=== PATIENT | female | born 1960 | race Caucasian/White ===

== ENCOUNTER 2019-02-07 09:00 | Observation (INO) ==
[2019-02-07] MEDS ORDERED: Ondansetron 4 MG/2 ML VIAL IVP ONE (09:08)
[2019-02-07] MEDS ORDERED: 0.9 % Sodium Chloride 1,000 ML IVC ONE ×2 (09:12→10:13)
[2019-02-07 09:46] LABS: VBG HCO3 28 mEq/L (21-27); VBG PCO2 49 mmHg (41-51); VBG PH 7.37 pH Units (7.32-7.42); VBG PO2 57 mmHg (25-50)
[2019-02-07 09:48] LABS: Basophils # 0.1 K/mcL (0.0-0.2); Basophils % 0.5 %; Hematocrit 43.5 % (35.3-44.9); Hemoglobin 13.9 g/dL (11.5-15.4); Immature Granulocytes % 0.7 % (0-4); Lymphocytes # 1.7 K/mcL (0.6-4.6); Mean Corpuscular Hemoglobin 27.8 pg (28.0-33.3); Monocytes % 5.9 %; Neutrophils # 14.5 K/mcL (1.6-8.9); Platelet Count 286 K/mcL (140-400); Red Cell Distribution Width 13.7 % (11.5-14.5); Segmented Neutrophils % 82.9 %; White Blood Count 17.4 K/mcL (4.3-11.1)
[2019-02-07] MEDS ORDERED: Isovue-370 500 ML BOTTLE IVP ONE (09:48)
--- NOTE | 2019-02-07 09:52 | Emergency Department Note ---
Disposition Clinical Impression: Pyelonephritis Disposition: Admitted As Inpatient Condition: Good Referrals: Santa Mcclain CNP [Primary Care Provider] - Forms: ED Satisfaction Letter, Work/School Release Time of Disposition: 11:46 Abdominal Pain HPI - General Chief Complaint: ED Abdominal Pain Stated Complaint: ABD Pain,Weakness Time Seen by Provider: 02/07/19 09:07 Source: patient Mode of arrival: ambulatory Limitations: no limitations Nursing Notes Reviewed: Yes Vital Signs Reviewed: Yes - History of Present Illness HPI Narrative: 58 year old female presents to the ED with complaints of abdominal pain and nausea with vomitting and sttes that this has been going on since Wednesday since she was exposed to her grandson who had strep thraot and she then consequently dveloepd blisters in her mouth. Lulú states that she has been without her insulin for the past 6 months secondary to insurance issues and has not been ab le to followup with the doctor because of it.S he has been recording his blood glucose at home and they have been in the range of 200-250s. Lulú states that the blisters in her mouth have improved but the abdominal pain has been worsening. States that is is gnerally diffuse but someimtes locates inot the LLQ side and denies any blood in her stool or diarrhea or consptiation. States that she has had decreased uriantion because of her nausea and depressed appetities. Denies ever being in DKA or hospitliaszed recently secondary to her diabetes. She takes insulin and no other diabetic medications. Lulú states that she has otherwise felt feverish at home without recoreded temperatures and chills. Pain Scale: 10 - Related Data Home Medications Medication Instructions Recorded Confirmed Gabapentin 04/05/17 Toujeo Solostar 04/05/17 Trulicity 04/05/17 Previous Rx's Medication Instructions Recorded Cefdinir [Omnicef] 600 mg PO DAILY #20 capsule 04/05/17 Fluticasone Propionate Nasal 2 spray IN DAILY #1 spray.susp 04/05/17 [Flonase] predniSONE [PredniSONE] 40 mg PO DAILY #10 tablet 04/05/17 Allergies Allergy/AdvReac Type Severity Reaction Status Date / Time No Known Allergies Allergy Verified 02/07/19 09:05 Constitutional: Reports: fever, chills, weakness. Denies: weight change Eyes: Denies: eye pain, eye discharge, vision change ENT ED: Denies: ear pain, throat pain, dental pain, hearing loss, epistaxis, congestion, dysphagia Cardiovascular: Denies: chest pain, palpitations, dyspnea on exertion, edema, syncope Respiratory: Denies: cough, dyspnea, wheezes, hemoptysis, stridor Gastrointestinal: Reports: abdominal pain, nausea. Denies: vomiting, diarrhea, constipation, hematemesis, melena, hematochezia Genitourinary: Denies: dysuria, frequency, hematuria, discharge Musculoskeletal: Denies: back pain, neck pain, arthralgia, myalgia Integumentary: Denies: rash, abrasion, lesions Neurological: Denies: headache, weakness, numbness, paresthesias, confusion, abnormal gait, vertigo Psychiatric: Denies: anxiety, depression, suicidal thoughts, homicidal thoughts, auditory hallucinations, visual hallucinations Endocrine: Denies: fatigue Hematological/Lymphatic: Denies: easy bleeding, easy bruising Allergic/Immunologic: Denies: facial swelling, urticaria Abdominal Pain PMH - Past Medical History Medical history: Reports: diabetes, hyperlipidemia, hypertension Female Surgical History: Reports: herniorrhaphy Psychiatric history: Reports: no psych history - Social History Smoking status: Never smoker Alcohol use: Reports: none Drug use: Reports: none Physical Exam - General Limitations: no limitations General appearance: alert - Head Head exam: atraumatic, normocephalic, normal inspection - Eye Eye exam: Present: normal appearance, PERRL, EOMI - Expanded Eye Exam Pupils: Bilateral: reactive - ENT ENT exam: normal exam, normal oropharynx, mucous membranes moist - Expanded ENT Exam External ear exam: Present: normal external inspection Mouth exam: Present: normal external inspection Teeth exam: Present: normal inspection Throat exam: Present: normal inspection - Neck Neck exam: Present: normal inspection, full ROM, trachea midline - Chest Chest inspection: Present: normal inspection, symmetric chest wall rise - Respiratory Respiratory exam: Present: normal lung sounds bilaterally - Cardiovascular Cardiovascular exam: Present: normal rhythm, tachycardia, normal heart sounds - Abdominal Exam Abdominal exam: Present: soft, tenderness, normal bowel sounds. Absent: Non- Tender, distention, guarding, rebound, rigidity, obturator sign, Braden's sign, Rovsing's sign, tenderness at McBurney's Point, hernia Abdominal tenderness: Present: diffuse, mild - Extremities Exam Extremities exam: Present: normal inspection, full ROM. Absent: tenderness, pedal edema - Expanded Upper Extremity Exam Shoulder exam: Present: normal inspection, full ROM Arm exam: Present: normal inspection, full ROM Elbow exam: Present: normal inspection, full ROM Forearm/Wrist exam: Present: normal inspection, full ROM Hand exam: Present: normal inspection, full ROM Vascular exam: Normal: capillary refill, radial pulse - Expanded Lower Extremity Exam Hip/Pelvis exam: Present: normal inspection, full ROM Upper leg exam: Present: normal inspection, full ROM Knee exam: Present: normal inspection, full ROM Lower leg exam: Present: normal inspection, full ROM Ankle exam: Present: normal inspection, full ROM Foot/toe exam: Present: normal inspection, full ROM Neurovascular/Tendon exam: Absent: motor deficit, sensory deficit, tendon deficit - Back Exam Back exam: Present: normal inspection, full ROM. Absent: tenderness - Neurological Exam Neurological exam: Present: alert, oriented X3 - Expanded Neurological Exam Patient oriented to: Present: person, place, time Coma Scale Eye Opening: Spontaneous Coma Scale Motor Response: Obeys Commands Coma Scale Verbal Response: Oriented Coma Scale Total: 15 - Psychiatric Psychiatric exam: Present: normal affect, normal mood - Skin Skin exam: Present: warm, dry, intact, normal color Course Course Narrative: I will do a ABCT and DKA workup on patient and start patient on IVF and insulin therapy as needed and I will do a focused infectious workup to rule out sepsis. - Consultations Consultation #1: discussed case with Dr. Carson who has accepted patient to her service. I was not able to give a whole presentation as Dr. Carson needed to attend to an emergent matter. She states that Dr. Berry will be calling back Time: 11:45 Vital Signs Temperature 98.1 F 02/07/19 09:03 Pulse Rate 111 02/07/19 09:03 Respiratory Rate 18 02/07/19 09:03 Blood Pressure 156/82 02/07/19 09:03 O2 Sat by Pulse Oximetry 94 02/07/19 09:03 Temperature 98.1 F 02/07/19 09:03 Pulse Rate 104 02/07/19 10:25 Respiratory Rate 18 02/07/19 10:25 Blood Pressure 163/86 02/07/19 10:25 O2 Sat by Pulse Oximetry 92 02/07/19 10:25 Oxygen Delivery Oxygen Delivery Nasal Cannula Abdominal Pain - Medical Records Medical records reviewed: Yes I reviewed the patient's medical records. - Lab Data Lab results reviewed: Yes I reviewed the patient's lab results. Result diagrams: 02/07/19 09:28 02/07/19 09:28 Lab Results 02/07/19 02/07/19 02/07/19 Range/Units 09:28 09:28 09:28 WBC 17.4 H (4.3-11.1) K/mcL RBC 5.00 H (3.82-4.97) M/mcL Hgb 13.9 (11.5-15.4) g/dL Hct 43.5 (35.3-44.9) % MCV 87.0 (83.0-100.0) fL MCH 27.8 L (28.0-33.3) pg MCHC 32.0 (31.6-35.5) g/dL RDW 13.7 (11.5-14.5) % Plt Count 286 (140-400) K/mcL MPV 10.0 (9.4-12.4) fL Immature Gran % 0.7 (0-4) % Seg Neutrophils % 82.9 % Lymphocytes % 10.0 % Monocytes % 5.9 % Eosinophils % 0.0 % Basophils % 0.5 % Neutrophils # 14.5 H (1.6-8.9) K/mcL Lymphocytes # 1.7 (0.6-4.6) K/mcL Monocytes # 1.0 (0.0-1.3) K/mcL Eosinophils # 0.0 (0.0-0.6) K/mcL Basophils # 0.1 (0.0-0.2) K/mcL PT 11.8 (9.4-12.1) Seconds INR 1.0 APTT 29.5 (26.0-36.0) Seconds VBG pH (7.32-7.42) pH Units VBG pCO2 (41-51) mmHg VBG pO2 (25-50) mmHg VBG HCO3 (21-27) mEq/L Sodium 135 L (136-145) mEq/L Potassium 4.2 (3.5-5.1) mEq/L Chloride 95 L (98-107) mEq/L Carbon Dioxide 26 (23-29) mEq/L BUN 26 H (8-23) mg/dL Creatinine 0.95 (0.60-1.20) mg/dL Est GFR ( Amer) > 60 (> 60) Est GFR (Non-Af Amer) > 60 (> 60) BUN/Creatinine Ratio 27 H (6-26) Glucose 528 H* (70-105) mg/dL Calculated Osmolality 309 H (280-300) Calcium 9.2 (8.6-10.3) mg/dL Total Bilirubin 0.5 (0.3-1.0) mg/dL Direct Bilirubin 0.1 (0.0-0.2) mg/dL Indirect Bilirubin 0.4 (0.0-1.2) mg/dL AST 9 L (13-39) Units/L ALT 6 L (7-52) Units/L Alkaline Phosphatase 66 (34-104) Units/L Troponin I < 0.03 (< 0.04) ng/mL Serum Total Protein 7.4 (6.4-8.9) g/dL Albumin 4.0 (3.5-5.7) g/dL Globulin 3.4 (2.4-3.5) g/dL Albumin/Globulin Ratio 1.2 (1.1-2.2) Lipase 13 (11-82) Units/L Beta-Hydroxybutyric Acd (0.02-0.27) mmol/L Specimen Rejected 02/07/19 02/07/19 02/07/19 Range/Units 09:28 09:43 11:19 WBC (4.3-11.1) K/mcL RBC (3.82-4.97) M/mcL Hgb (11.5-15.4) g/dL Hct (35.3-44.9) % MCV (83.0-100.0) fL MCH (28.0-33.3) pg MCHC (31.6-35.5) g/dL RDW (11.5-14.5) % Plt Count (140-400) K/mcL MPV (9.4-12.4) fL Immature Gran % (0-4) % Seg Neutrophils % % Lymphocytes % % Monocytes % % Eosinophils % % Basophils % % Neutrophils # (1.6-8.9) K/mcL Lymphocytes # (0.6-4.6) K/mcL Monocytes # (0.0-1.3) K/mcL Eosinophils # (0.0-0.6) K/mcL Basophils # (0.0-0.2) K/mcL PT (9.4-12.1) Seconds INR APTT (26.0-36.0) Seconds VBG pH 7.37 (7.32-7.42) pH Units VBG pCO2 49 (41-51) mmHg VBG pO2 57 H (25-50) mmHg VBG HCO3 28 H (21-27) mEq/L Sodium (136-145) mEq/L Potassium (3.5-5.1) mEq/L Chloride (98-107) mEq/L Carbon Dioxide (23-29) mEq/L BUN (8-23) mg/dL Creatinine (0.60-1.20) mg/dL Est GFR ( Amer) (> 60) Est GFR (Non-Af Amer) (> 60) BUN/Creatinine Ratio (6-26) Glucose (70-105) mg/dL Calculated Osmolality (280-300) Calcium (8.6-10.3) mg/dL Total Bilirubin (0.3-1.0) mg/dL Direct Bilirubin (0.0-0.2) mg/dL Indirect Bilirubin (0.0-1.2) mg/dL AST (13-39) Units/L ALT (7-52) Units/L Alkaline Phosphatase (34-104) Units/L Troponin I (< 0.04) ng/mL Serum Total Protein (6.4-8.9) g/dL Albumin (3.5-5.7) g/dL Globulin (2.4-3.5) g/dL Albumin/Globulin Ratio (1.1-2.2) Lipase (11-82) Units/L Beta-Hydroxybutyric Acd 1.42 H (0.02-0.27) mmol/L Specimen Rejected Hemolyzed - Radiology Data Radiology results reviewed: Yes I reviewed the patient's radiology results. - EKG Data EKG attestation: Yes I reviewed and interpreted this EKG. EKG results narrative: sinus tachycardia with rate of 107. NO STEMI. normal intervla. no change from 04/21/15. 0920
[2019-02-07 10:13] LABS: Alanine Aminotransferase 6 Units/L (7-52); Albumin/Globulin Ratio 1.2 (1.1-2.2); Alkaline Phosphatase 66 Units/L (34-104); Aspartate Amino Transferase 9 Units/L (13-39); BUN/Creatinine Ratio 27 (6-26); Bilirubin,Direct 0.1 mg/dL (0.0-0.2); Bilirubin,Indirect 0.4 mg/dL (0.0-1.2); Bilirubin,Total 0.5 mg/dL (0.3-1.0); Blood Urea Nitrogen 26 mg/dL (8-23); Calcium 9.2 mg/dL (8.6-10.3); Carbon Dioxide 26 mEq/L (23-29); Chloride 95 mEq/L (98-107); Globulin 3.4 g/dL (2.4-3.5); Glucose 528 mg/dL (70-105); Lipase 13 Units/L (11-82); Osmolality,Calculated 309 (280-300); Potassium 4.2 mEq/L (3.5-5.1); Sodium 135 mEq/L (136-145); Total Protein 7.4 g/dL (6.4-8.9); Troponin I < 0.03 ng/mL (< 0.04); eGFR For African Americans > 60 (> 60); eGFR For Non-African Americans > 60 (> 60)
[2019-02-07] MEDS ORDERED: Piperacillin/Tazobactam 3.375 GM in 0.9 % Sodium Chloride Mini Bag 100 ML IVPB ONE (10:13)
[2019-02-07] MEDS ORDERED: Insulin Human Regular 10 UNIT in 0.9 % Sodium Chloride 10 ML IV ONE (10:13)
[2019-02-07 10:16] LABS: Prothrombin Time 11.8 Seconds (9.4-12.1)
[2019-02-07 10:18] LABS: Activated Partial Thrombo Time 29.5 Seconds (26.0-36.0)
[2019-02-07] MEDS ORDERED: cefTRIAXone 1,000 MG in Water for inj. (sterile) 10 ML IVP ONE (11:16)
[2019-02-07 11:57] LABS: Bilirubin,Urine Negative (Negative); Blood,Urine Small (Negative); Clarity,Urine Clear (Clear); Color,Urine Yellow (Yellow); Glucose,Urine (UA) >=1000 mg/dL (Normal); Ketones,Urine 15 mg/dL (Negative); Leukocyte Esterase,Urine Negative (Negative); Nitrite,Urine Positive (Negative); PH,Urine 5.5 pH Units (5.0-8.0); Protein,Urine 100 mg/dL (Neg-Trace); Specific Gravity,Urine > 1.030 (1.010-1.025); Urobilinogen,Urine Normal (Normal)
[2019-02-07 11:58] LABS: Bacteria,Urine Many per hpf (None-Few); RBC,Urine 0-3 per hpf (0-3); Squamous Epithelial Cell,Urine Many per lpf (None-Few); WBC,Urine 0-3 per hpf (0-3)
[2019-02-07] MEDS ORDERED: Naloxone 0.4 MG/ML INJ IVP PRN (11:58)
[2019-02-07] MEDS ORDERED: Ringers Solution, Lactated 1,000 ML IVC SCH (12:00)
[2019-02-07] MEDS ORDERED: Dextrose Gel 15 GM/37.5 ML TUBE PO PRN ×2 (12:01)
[2019-02-07] MEDS ORDERED: D5% in Water 1,000 ML IVC PRN (12:01)
[2019-02-07] MEDS ORDERED: *HR* Dextrose 50 % in Water (Syg) 50 ML SYRINGE IVP PRN ×2 (12:01→12:02)
[2019-02-07] MEDS ORDERED: Insulin Regular, Human 100 UNIT/ML IV PRN (12:02)
[2019-02-07] MEDS ORDERED: D5% in 0.45% NACL w KCl 20 MEQ/1,000 ML MLS IVC PRN (12:02)
[2019-02-07] MEDS ORDERED: Insulin Human Regular 100 UNIT in 0.9 % Sodium Chloride 100 ML IVC SCH (12:15)
[2019-02-07 12:48] LABS: Chol/HDL Ratio 8.7 (0-4.9); Cholesterol 251 mg/dL (< 200); HDL Cholesterol 29 mg/dL (40-59); LDL Cholesterol,Calculated 191 mg/dL (0-99); Triglycerides 154 mg/dL (< 150)
[2019-02-07] MEDS: Pantoprazole 40 MG VIAL IVP SCH (13:00)
[2019-02-07 13:36] LABS: BUN/Creatinine Ratio 25 (6-26); Blood Urea Nitrogen 21 mg/dL (8-23); Calcium 8.1 mg/dL (8.6-10.3); Carbon Dioxide 27 mEq/L (23-29); Chloride 102 mEq/L (98-107); Glucose 307 mg/dL (70-105); Osmolality,Calculated 303 (280-300); Potassium 4.1 mEq/L (3.5-5.1); Sodium 139 mEq/L (136-145); Troponin I < 0.03 ng/mL (< 0.04); eGFR For African Americans > 60 (> 60); eGFR For Non-African Americans > 60 (> 60)
[2019-02-07 14:41] LABS: Estimated Average Glucose 212 mg/dl
[2019-02-07] MEDS: *HR* Heparin 5,000 UNIT/ML VIAL SQ SCH ×2 (15:30→20:37)
--- NOTE | 2019-02-07 16:01 | Internal Med History&Physical ---
Date of Encounter: 02/07/19 Time of Encounter: 15:56 Internal Medicine - H&P: HPI Chief complaint: abdominal pain, generalized weakness Admitted From: Home Plans for Post Hospital Care: Home History of present illness: Ms. Dickerson is a 58 year old female PMH of DM. patient presented to the ED due to 5 days history of abdominal pain and generalized weakness. Stated her symptoms started after she took one of the grandchildren to the doctor because of strep throat. Patient reported since Wednesday afternoon she has been feeling sick, which she describes as feeling weak, stated she got to bed Wednesday afternoon because of how sick she felt and was not able to get until today when her daughter brought her to the ED. She reported having 10/10 supra-pubic abdominal pain, which was constant, non-radiating, associated with nausea, and dry heaves. Reports subjective fever and chills. Also reports very poor oral intake. Patient reported she has not been taking her insulin because 6 months ago she lost insurance coverage and she cannot pay her medications. Past Med Surg Social Fam HX - Past Medical History Medical history: diabetes, hyperlipidemia, hypertension Additional medical history: hyperlipidemia Psychiatric history: no psych history - Past Surgical History Surgical History: hysterectomy Additional surgical history: achilles tendon, nasal - Social History Smoking Status: Never smoker Smokeless Tobacco Status: No Alcohol use: none Drug use: none - Family History Mother Adopted: No Hx Family Cardiac Disorders: Yes Hx Family Respiratory Disorders: Yes Father Living Status: Hx Family Cancer: Yes Internal Medicine - H&P: Meds Ropinirole HCl [Requip] 0.5 mg PO HS 02/07/19 [History] Allergy/AdvReac Type Severity Reaction Status Date / Time No Known Allergies Allergy Verified 02/07/19 09:05 All Systems PM: A 10-system review of systems was performed and is negative for pertinent findings except as documented above in the HPI. - Constitutional Constitutional: fatigue, fever(s) (subjective. ), malaise, weakness, no chills, no lethargy - EENT Nose, mouth and throat: no epistaxis - Cardiovascular Cardiovascular ROS IM: no chest pain, no dyspnea, no edema, no orthopnea - Respiratory Respiratory: no cough, no excessive phlegm production - Gastrointestinal Gastrointestinal: abdominal pain, nausea, no vomiting - Genitourinary Genitourinary: no dysuria, no urinary frequency, no urinary hesitancy, no urinary urgency - Musculoskeletal Musculoskeletal ROS IM: no muscle weakness - Integumentary Integumentary IM: no erythema, no non-healing lesions - Neurological Neurological ROS: no headache(s) - Psychiatric Psychiatric: no anxiety - Hematologic/Lymphatic Hematologic/Lymphatic: no lymphadenopathy - Allergic/Immunologic Allergic/Immunologic: no GI upset with certain foods - Constitutional Vitals: Temp Pulse Resp BP Pulse Ox 99.3 F 101 16 160/84 93 02/07/19 14:33 02/07/19 14:33 02/07/19 14:33 02/07/19 14:33 02/07/19 14:33 Exam: Vitals: Reviewed General: Alert and oriented x4. In mild distress due to abdominal pain and generalized weakness. Skin:Normal color, no rash, no lesions. HEENT: dry mucus membrane, EOM, pupils equal, round and reactive. Cardiovascular: RRR, normal S1 & S2, no rubs, murmurs or gallops. Lungs: CTA b/l, no wheezes or crackles. Abdomen: Soft, tenderness to superficial palpation on the supra-pubic area, no rigidity. CVA tenderness b/l. Extremities: No deformity, no edema or tenderness, no joint swelling or clubbing. Neurological: Normal cognition and motor skills. Rest of the physical exam is non contributory Internal Med - H&P Results - Labs CBC & Chem 7: 02/07/19 09:28 02/07/19 12:57 Labs: Short CBC 02/07/19 Range/Units 09:28 WBC 17.4 H (4.3-11.1) K/mcL Hgb 13.9 (11.5-15.4) g/dL Hct 43.5 (35.3-44.9) % Plt Count 286 (140-400) K/mcL Neutrophils # 14.5 H (1.6-8.9) K/mcL BMP 02/07/19 02/07/19 09:28 12:57 Sodium 135 L 139 Potassium 4.2 4.1 Chloride 95 L 102 Carbon Dioxide 26 27 BUN 26 H 21 Creatinine 0.95 0.83 Glucose 528 H* 307 H Calcium 9.2 8.1 L Cardiac Enzymes 02/07/19 02/07/19 Range/Units 09:28 12:57 Troponin I < 0.03 < 0.03 (< 0.04) ng/mL Liver Function 02/07/19 Range/Units 09:28 Total Bilirubin 0.5 (0.3-1.0) mg/dL Direct Bilirubin 0.1 (0.0-0.2) mg/dL AST 9 L (13-39) Units/L ALT 6 L (7-52) Units/L Alkaline Phosphatase 66 (34-104) Units/L Albumin 4.0 (3.5-5.7) g/dL Urine 02/07/19 Range/Units 11:47 Urine Color Yellow (Yellow) Urine Clarity Clear (Clear) Urine pH 5.5 (5.0-8.0) pH Units Ur Specific [place] > 1.030 H (1.010-1.025) Urine Protein 100 H (Neg-Trace) mg/dL Urine Glucose (UA) >=1000 H (Normal) mg/dL - ABG Interpretation ABG results: 02/07/19 09:43 VBG pH 7.37 VBG pCO2 49 VBG pO2 57 H VBG HCO3 28 H - Impressions ITS Impressions Abdomen/Pelvis CT 02/07/19 09:48 IMPRESSION: Small amount of gas within the urinary bladder with inflammatory changes of the left urinary collecting system and left renal cortical hypoenhancement most compatible with cystitis and left pyelonephritis. Correlation with urinalysis advised. Fatty liver. D/ / Bethel Roldan / Bethel Roldan Interpreting Provider: Bethel Roldan - Assessment and Plan (1) Secondary DM with DKA, uncontrolled Current Visit: Yes Status: Acute Assessment and plan: Patient with mild DKA secondary to sepsis. Plan - started on Lactate ringer @100ml/hr x2 litters. - Lispro 10 unit ordered - insulin drip, titrate for protocol. - will repeat BMP following appropiated IV fluids hydration and insulin coverage. - started empirically on broad spectrum IV antibiotics - A1C ordered. - lipid panel - trops (2) Pyelonephritis Current Visit: Yes Status: Acute Assessment and plan: CT/CT abd pelvis w iv no oral IMPRESSION: Small amount of gas within the urinary bladder with inflammatory changes of the left urinary collecting system and left renal cortical hypoenhancement most compatible with cystitis and left pyelonephritis. Correlation with urinalysis advised. Plan: blood and urine culture started on broad spectrum IV antibiotics IV hydration repeat lactic acid following IV fluid hydration. (3) Essential hypertension Current Visit: No Status: Chronic Assessment and plan: lisinopril 5mg/PO daily added (4) Obesity (BMI 30.0-34.9) Current Visit: No Status: Chronic (5) Sepsis Current Visit: Yes Status: Acute Assessment and plan: secondary to UTI, pyelonephritis. Plan of care as problem #1. Qualifiers: Sepsis type: sepsis due to unspecified organism Sepsis acute organ dysfunction status: without acute organ dysfunction Qualified Code(s): A41.9 - Sepsis, unspecified organism - Time Spent With Patient Total time spent is greater than 50% in coordination of care (as documented) at patient's floor/unit and/or counseling patient: Greater than 35 minutes (50)
[2019-02-07] MEDS: Ondansetron ODT 4 MG TAB.RAPDIS SL PRN (16:04)
[2019-02-07] MEDS: Piperacillin/Tazobactam 3.375 GM in 0.9 % Sodium Chloride Mini Bag 100 ML IVPB SCH (16:04)
[2019-02-07] MEDS: Insulin DETEMIR 100 UNIT/ML X5UNITS SQ SCH ×2 (16:04→20:31)
[2019-02-07] MEDS: 0.9 % Sodium Chloride 1,000 ML IVC SCH (17:18)
[2019-02-07] MEDS: Insulin LISPRO 300 UNITS/3 ML VIAL SQ SCH ×2 (17:26→20:38)
[2019-02-07] MEDS ORDERED: Insulin LISPRO 300 UNITS/3 ML VIAL SQ SCH (18:00)
[2019-02-07 19:03] LABS: BUN/Creatinine Ratio 25 (6-26); Blood Urea Nitrogen 19 mg/dL (8-23); Calcium 8.3 mg/dL (8.6-10.3); Carbon Dioxide 27 mEq/L (23-29); Chloride 102 mEq/L (98-107); Glucose 280 mg/dL (70-105); Osmolality,Calculated 298 (280-300); Potassium 3.6 mEq/L (3.5-5.1); Sodium 138 mEq/L (136-145); eGFR For African Americans > 60 (> 60); eGFR For Non-African Americans > 60 (> 60)
--- NOTE | 2019-02-07 23:39 | Electrocardiograph Report ---
[place] [facility] Test Date: 2019-02-07 Pat Name: Radha Dickerson Department: EXAM5 Room: 3B12 Gender: F Skiver [place] End: : 1960 Requested By: Nena Garcia Order Number: [id number] Reading MD: Shania Anderson Measurements Intervals [place] Rate: 107 P: 67 MT: 128 QRS: -22 QRSD: 91 T: 95 QT: 336 QTc: 449 Interpretive Statements Sinus tachycardia Probable left atrial enlargement Borderline left axis deviation Borderline repolarization abnormality Electronically Signed On 02-07-2019 23:37:28 EDT by Shania Anderson
[2019-02-08] MEDS: Piperacillin/Tazobactam 3.375 GM in 0.9 % Sodium Chloride Mini Bag 100 ML IVPB SCH ×3 (00:59→17:50)
[2019-02-08] MEDS ORDERED: tiZANidine 4 MG TABLET PO ONE (01:19)
[2019-02-08 01:37] LABS: Magnesium 2.2 mg/dL (1.6-2.6); Phosphorous 2.4 mg/dL (2.7-4.5)
[2019-02-08] MEDS: 0.9 % Sodium Chloride 1,000 ML IVC SCH ×2 (04:36→14:32)
[2019-02-08] MEDS: *HR* Heparin 5,000 UNIT/ML VIAL SQ SCH ×3 (05:56→20:49)
[2019-02-08] MEDS: Insulin DETEMIR 100 UNIT/ML X5UNITS SQ SCH ×2 (08:16→20:50)
[2019-02-08] MEDS: Insulin LISPRO 300 UNITS/3 ML VIAL SQ SCH ×4 (08:16→20:52)
[2019-02-08] MEDS: Pantoprazole 40 MG VIAL IVP SCH (08:16)
--- NOTE | 2019-02-08 10:14 | Internal Med Progress Note ---
Hospitalist Progress Note - Encounter Date of Encounter: 02/08/19 Time of Encounter: 08:00 - Subjective Interval History: Ms. Dickerson is a 58 year old female PMH of DM, HTN and HLD pt patient presented to the ED with 5 days h/o abdominal pain and intractable nausea. She also c/o generalized weakness and lethargy. She happened to have acute UTI, pyelonep hritis and mild DKA. Patient stated from last 6 months not taking any medication for diabetes since she does not have medical insurance. She was admitted in the hospital and placed on compliance monitor. She was started on insulin drip initially which later switched to ISS and Levemir when her DKA improved. She was also placed on broad spectrum IV antibiotic Zosyn. Patient stated she is feeling little better today. - Exam Vitals: Temp Pulse Resp BP Pulse Ox 98.3 F 80 20 154/71 95 02/08/19 07:21 02/08/19 07:21 02/08/19 07:21 02/08/19 07:21 02/08/19 07:21 Exam: Gen: Alert, awake, Oriented to time,place and person Chest: Diminished breath sounds B/L, No wheezing, No crackles, No rales Heart: S1S2+ RRR No murmurs Abd: Soft, NT, BS +, No organomegaly Ext: No edema, pulses are palpable, No calf tenderness Neuro : No acute focal neuro deficits noticed Skin: No rash. - Assessment and Plan (1) Secondary DM with DKA, uncontrolled Current Visit: Yes Status: Acute Assessment and Plan: Resolved Stable BS now HbA1C 9.0 Inc Levemir to 20 U BID Changed ISS to Medium scale consulted nutrition for diet education (2) Pyelonephritis Current Visit: Yes Status: Acute Assessment and Plan: CT abd pelvis showed- small amount of gas within the urinary bladder with inflammatory changes of the left urinary collecting system and left renal cortical hypoenhancement most compatible with cystitis and left pyelonephritis. Will follow-up on blood culture urine culture still incubating continue broad-spectrum IV antibiotic Zosyn (3) Sepsis Current Visit: Yes Status: Acute Assessment and Plan: Met Spesis criteria upon admission with leukocytosis, tachycardia and source of infection as UTI, pyelonephritis. Improving continue above care (4) Obesity (BMI 30.0-34.9) Current Visit: No Status: Chronic Assessment and Plan: Counseled to lose weight (5) Essential hypertension Current Visit: No Status: Chronic Assessment and Plan: Cont Lisinopril.. will inc to 20 mg - Time Spent with Patient Total time spent is greater than 50% in coordination of care (as documented) at patient's floor/unit and/or counseling patient: Internal Medicine: Result - Labs CBC & Chem 7: 02/07/19 09:28 02/07/19 18:02 Labs: BMP 02/07/19 02/07/19 02/07/19 09:28 12:57 18:02 Sodium 135 L 139 138 Potassium 4.2 4.1 3.6 Chloride 95 L 102 102 Carbon Dioxide 26 27 27 BUN 26 H 21 19 Creatinine 0.95 0.83 0.76 Glucose 528 H* 307 H 280 H Calcium 9.2 8.1 L 8.3 L Cardiac Enzymes 02/07/19 02/07/19 02/07/19 Range/Units 09:28 12:57 18:02 Troponin I < 0.03 < 0.03 < 0.03 (< 0.04) ng/mL 02/08/19 Range/Units 00:53 Troponin I < 0.03 (< 0.04) ng/mL Liver Function 02/07/19 Range/Units 09:28 Total Bilirubin 0.5 (0.3-1.0) mg/dL Direct Bilirubin 0.1 (0.0-0.2) mg/dL AST 9 L (13-39) Units/L ALT 6 L (7-52) Units/L Alkaline Phosphatase 66 (34-104) Units/L Albumin 4.0 (3.5-5.7) g/dL Urine 02/07/19 Range/Units 11:47 Urine Color Yellow (Yellow) Urine Clarity Clear (Clear) Urine pH 5.5 (5.0-8.0) pH Units Ur Specific [place] > 1.030 H (1.010-1.025) Urine Protein 100 H (Neg-Trace) mg/dL Urine Glucose (UA) >=1000 H (Normal) mg/dL - ABG Interpretation ABG results: PT/INR, D-dimer PT 11.8 Seconds (9.4-12.1) 02/07/19 09:28 - Impressions Impressions Abdomen/Pelvis CT 02/07/19 09:48 IMPRESSION: Small amount of gas within the urinary bladder with inflammatory changes of the left urinary collecting system and left renal cortical hypoenhancement most compatible with cystitis and left pyelonephritis. Correlation with urinalysis advised. Fatty liver. D/ / Bethel Roldan / Bethle Roldan Interpreting Provider: Bethel Roldan Consult Discharge Plan - Plan Referrals: Santa Mcclain, MARINE PIPEFITTER [Primary Care Provider] - _ (3) Sepsis Qualifiers: Sepsis type: sepsis due to unspecified organism Sepsis acute organ dysfunction status: without acute organ dysfunction Qualified Code(s): A41.9 - Sepsis, unspecified organism
[2019-02-08] MEDS: Ondansetron ODT 4 MG TAB.RAPDIS SL PRN (17:49)
[2019-02-08] MEDS ORDERED: *HR* OxyCODONE Immed Rel 5 MG TABLET PO ONE (21:07)
[2019-02-09] MEDS: 0.9 % Sodium Chloride 1,000 ML IVC SCH ×2 (00:18→09:29)
[2019-02-09] MEDS: Piperacillin/Tazobactam 3.375 GM in 0.9 % Sodium Chloride Mini Bag 100 ML IVPB SCH ×2 (00:23→08:33)
[2019-02-09] MEDS: *HR* Heparin 5,000 UNIT/ML VIAL SQ SCH (05:17)
[2019-02-09] MEDS: Insulin LISPRO 300 UNITS/3 ML VIAL SQ SCH ×2 (07:23→12:32)
[2019-02-09] MEDS: Insulin DETEMIR 100 UNIT/ML X5UNITS SQ SCH (09:27)
--- NOTE | 2019-02-09 10:26 | Discharge Summary ---
- NOTES TO OUTPATIENT PROVIDER Notes to Outpatient Provider: f/u with PCP in one week. Your HbA1C - 9.0. Please take Metformin 1/2 tab PO BID x 3 days, if you tolerate well you can increase to 1 tab Po BID Orders not resulted at time of discharge: Pending orders 02/07/19 11:19 Culture,Blood [BC] Stat 02/07/19 11:47 Culture,Urine [RM] Stat Date of Encounter: 02/09/19 Time of Encounter: 10:23 - Discharge Diagnosis (1) Secondary DM with DKA, uncontrolled Priority: Primary Status: Acute (2) Pyelonephritis Priority: Primary Status: Acute (3) Sepsis Priority: Primary Status: Acute Qualifiers: Sepsis type: sepsis due to unspecified organism Sepsis acute organ dysfunction status: without acute organ dysfunction Qualified Code(s): A41.9 - Sepsis, unspecified organism (4) Obesity (BMI 30.0-34.9) Priority: Secondary Status: Chronic (5) Essential hypertension Priority: Secondary Status: Chronic Hospital course: Ms. Dickerson is a 58 year old female PMH of DM, HTN and HLD pt patient presented to the ED with 5 days h/o abdominal pain and intractable nausea. She also c/o generalized weakness and lethargy. She happened to have acute UTI, pyelonephritis and mild DKA. Patient stated from last 6 months not taking any medication for diabetes since she does not have medical insurance. She was admitted in the hospital and placed on cardiac monitor technician. She was started on insulin drip initially which later switched to ISS and Levemir when her DKA improved. She was also placed on broad spectrum IV antibiotic Zosyn. Her symptoms improved now. For her DM2, started her on Levemir 20 U BID and, added PO Meds Meformin and Glipizide 5mg BID. For her UTI recommend to take Augmentin for 5 days. Will d/c her home in stable condition today after CM arranging her home medications. - Time Spent with Patient Total time spent providing and/or coordinating discharge services: - Discharge Medications Prescriptions: New Amoxicillin/Clavulanate [Augmentin] 875 mg PO BIDWM #10 tablet GlipiZIDE [Glucotrol] 5 mg PO BIDWM #60 tablet Insulin DETEMIR [Levemir Flextouch] 20 unit SQ BID #2 insuln.pen Metformin HCl 1,000 mg PO BID #60 tablet Lisinopril [Zestril] 20 mg PO DAILY #30 tablet Continued Ropinirole HCl [Requip] 0.5 mg PO HS Home Medications: Ropinirole HCl [Requip] 0.5 mg PO HS 02/07/19 [History] Amoxicillin/Clavulanate [Augmentin] 875 mg PO BIDWM #10 tablet 02/09/19 [Rx] GlipiZIDE [Glucotrol] 5 mg PO BIDWM #60 tablet 02/09/19 [Rx] Insulin DETEMIR [Levemir Flextouch] 20 unit SQ BID #2 insuln.pen 02/09/19 [Rx] Lisinopril [Zestril] 20 mg PO DAILY #30 tablet 02/09/19 [Rx] Metformin HCl 1,000 mg PO BID #60 tablet 02/09/19 [Rx] Allergies/Adverse Reactions: Allergy/AdvReac Type Severity Reaction Status Date / Time No Known Allergies Allergy Verified 02/08/19 11:03 Date of admission: 02/07/19 13:29 Primary care physician: Santa Mcclain CNP Consults: 02/08/19 10:17 Consult to Nutrition [CONS] Routine Comment: Consulting Provider: NUTRITION Reason for Dietary Consult: Diet Education - Constitutional Vitals: Temp Pulse Resp BP Pulse Ox 98.0 F 82 18 132/74 93 02/09/19 07:09 02/09/19 07:09 02/09/19 07:09 02/09/19 07:09 02/09/19 07:09 General appearance: Present: cooperative, A&O X 3, no acute distress, answers questions appropriately Exam: Gen: Alert, awake, Oriented to time,place and person Chest: Diminished breath sounds B/L, No wheezing, No crackles, No rales Heart: S1S2+ RRR No murmurs Abd: Soft, NT, BS +, No organomegaly Ext: No edema, pulses are palpable, No calf tenderness Neuro : No acute focal neuro deficits noticed Skin: No rash. - Patient Status Disposition: Home, Self-Care Condition: Good Overall status at discharge: patient is back to baseline - Discharge Instructions Follow Up With: Santa Mcclain CNP [Primary Care Provider] - Forms: Work/School Release - Diet and Activity Activity: increase activity as tolerated Diet: low salt diet
[2019-02-09 12:31] VITALS: BP 126/79
== END 2019-02-09 13:35 | disposition home or self-care (01) ==
LOC: EMEROOARM 09:00 → 3BNU 09:00 → SUATTDRO 13:29 → 3BNU 14:03
PROVIDERS: ADMIT Internal Medicine Nephrology; ATTEND Family Medicine

== ENCOUNTER 2020-08-07 19:42 | Inpatient (IN) ==
[2020-08-07] MEDS ORDERED: Aspirin 81 MG TAB.CHEW PO ONE (19:59)
[2020-08-07 20:20] LABS: Basophils # 0.1 K/mcL (0.0-0.2); Basophils % 0.7 %; Eosinophils # 0.2 K/mcL (0.0-0.6); Eosinophils % 1.6 %; Hematocrit 39.2 % (35.3-44.9); Hemoglobin 12.3 g/dL (11.5-15.4); Immature Granulocytes % 0.5 % (0-4); Lymphocytes % 22.3 %; Mean Corpuscular HGB Conc 31.4 g/dL (31.6-35.5); Mean Corpuscular Hemoglobin 27.4 pg (28.0-33.3); Mean Corpuscular Volume 87.3 fL (83.0-100.0); Mean Platelet Volume 10.6 fL (9.4-12.4); Monocytes # 0.9 K/mcL (0.0-1.3); Monocytes % 6.6 %; Neutrophils # 9.2 K/mcL (1.6-8.9); Platelet Count 284 K/mcL (140-400); Red Blood Count 4.49 M/mcL (3.82-4.97); Segmented Neutrophils % 68.3 %; White Blood Count 13.4 K/mcL (4.3-11.1)
[2020-08-07 20:30] LABS: Prothrombin Time 11.2 Seconds (9.4-12.1)
[2020-08-07 20:33] LABS: Activated Partial Thrombo Time 27.9 Seconds (26.0-36.0)
[2020-08-07 20:52] LABS: BUN/Creatinine Ratio 22 (6-26); Blood Urea Nitrogen 18 mg/dL (8-23); Calcium 9.7 mg/dL (8.6-10.3); Carbon Dioxide 26 mEq/L (23-29); Chloride 102 mEq/L (98-107); Glucose 204 mg/dL (70-105); Osmolality,Calculated 292 (280-300); Potassium 4.4 mEq/L (3.5-5.1); Sodium 137 mEq/L (136-145); Troponin I 0.44 ng/mL (< 0.04); eGFR For African Americans > 60 (> 60); eGFR For Non-African Americans > 60 (> 60)
[2020-08-07] MEDS: Nitroglycerin 0.4 MG TAB.SUBL SL SCH ×3 (21:04→23:37)
[2020-08-07] MEDS ORDERED: *HR* Heparin 5,000 UNIT/ML VIAL IVP ONE (21:24)
[2020-08-07] MEDS ORDERED: *HR* Heparin 5,000 UNIT/ML VIAL IVP PRN ×2 (21:24)
[2020-08-07] MEDS ORDERED: Heparin 25,000UNIT/250ML 1/2NS 25,000 UNIT/250 ML IV.SOLN IVC SCH (21:30)
[2020-08-07] MEDS ORDERED: *HR* Ticagrelor 90 MG TABLET PO ONE (21:41)
[2020-08-07] MEDS ORDERED: 0.9 % Sodium Chloride 2,000 ML ONE (22:09)
[2020-08-07] MEDS ORDERED: *HR* Heparin 10,000 UNIT/10 ML VIAL ONE (22:09)
[2020-08-07] MEDS ORDERED: Heparin 1,000 UNITS/500 mL 500 ML ONE ×2 (22:09→23:29)
[2020-08-07] MEDS ORDERED: ISOVUE-370 200 ML INFUS..BTL ONE ×2 (22:10→23:33)
[2020-08-07] MEDS ORDERED: Nitroglycerin 1,000 MCG/10 ML VIAL IV ONE (22:10)
[2020-08-07] MEDS ORDERED: *HR* Midazolam HCl 2 MG/2 ML VIAL ONE ×2 (22:31→22:44)
[2020-08-07] MEDS ORDERED: *HR* FentaNYL (PF) 100 MCG/2 ML VIAL ONE (22:31)
[2020-08-08] MEDS ORDERED: Perflutren Lipid Microsphere 1.3 ML in 0.9 % Sodium Chloride 8.7 ML IVP PRN ×2 (00:12→16:23)
[2020-08-08] MEDS ORDERED: Morphine Sulfate 2 MG/ML SYRINGE IVP PRN ×2 (00:12→16:23)
[2020-08-08] MEDS ORDERED: 0.9 % Sodium Chloride 1,000 ML IVC SCH (00:30)
[2020-08-08] MEDS ORDERED: D5% in Water 1,000 ML IVC PRN ×2 (00:46→16:23)
[2020-08-08] MEDS ORDERED: *HR* Dextrose 50 % in Water (Vial) 50 ML VIAL IVP PRN ×2 (00:46→16:23)
[2020-08-08] MEDS ORDERED: Dextrose Gel 15 GM/37.5 ML TUBE PO PRN ×4 (00:46→16:23)
[2020-08-08 02:07] LABS: Adenovirus Not Detected (Not Detect); Bordetella Pertussis Not Detected (Not Detect); Chlamydophila pneumoniae Not Detected (Not Detect); Coronavirus 229E Not Detected (Not Detect); Coronavirus HKU1 Not Detected (Not Detect); Coronavirus NL63 Not Detected (Not Detect); Coronavirus OC43 Not Detected (Not Detect); Human Metapneumovirus Not Detected (Not Detect); Human Rhinovirus/Enterovirus Not Detected (Not Detect); Influenza A Subtype 2009 H1 Not Detected (Not Detect); Influenza B Not Detected (Not Detect); Mycoplasma pneumoniae Not Detected (Not Detect); Parainfluenza Virus 1 Not Detected (Not Detect); Parainfluenza Virus 2 Not Detected (Not Detect); Parainfluenza Virus 3 Not Detected (Not Detect); Parainfluenza Virus 4 Not Detected (Not Detect); Respiratory Syncytial Virus Not Detected (Not Detect); SARS-CoV-2 Not Detected (Not Detect)
[2020-08-08] MEDS ORDERED: Gabapentin 300 MG CAPSULE PO ONE (02:31)
[2020-08-08] MEDS ORDERED: rOPINIRole 0.25 MG TABLET PO ONE (02:45)
[2020-08-08] MEDS ORDERED: carvediloL 6.25 MG TABLET PO SCH ×2 (02:45→17:00)
[2020-08-08 04:36] LABS: Basophils # 0.1 K/mcL (0.0-0.2); Basophils % 0.5 %; Eosinophils # 0.3 K/mcL (0.0-0.6); Eosinophils % 1.9 %; Hematocrit 35.6 % (35.3-44.9); Hemoglobin 11.2 g/dL (11.5-15.4); Immature Granulocytes % 0.5 % (0-4); Lymphocytes # 3.9 K/mcL (0.6-4.6); Lymphocytes % 26.2 %; Mean Corpuscular HGB Conc 31.5 g/dL (31.6-35.5); Mean Corpuscular Hemoglobin 27.6 pg (28.0-33.3); Mean Corpuscular Volume 87.7 fL (83.0-100.0); Monocytes # 0.9 K/mcL (0.0-1.3); Neutrophils # 9.7 K/mcL (1.6-8.9); Platelet Count 236 K/mcL (140-400); Red Blood Count 4.06 M/mcL (3.82-4.97); Red Cell Distribution Width 14.3 % (11.5-14.5); Segmented Neutrophils % 64.9 %; White Blood Count 14.9 K/mcL (4.3-11.1)
[2020-08-08 04:51] LABS: Estimated Average Glucose 243 mg/dl; Hemoglobin A1C 10.1 %
[2020-08-08 04:54] LABS: BUN/Creatinine Ratio 22 (6-26); Blood Urea Nitrogen 16 mg/dL (8-23); Calcium 8.6 mg/dL (8.6-10.3); Carbon Dioxide 24 mEq/L (23-29); Chloride 103 mEq/L (98-107); Chol/HDL Ratio 6.3 (0-4.9); Cholesterol 214 mg/dL (< 200); Glucose 117 mg/dL (70-105); HDL Cholesterol 34 mg/dL (40-59); LDL Cholesterol,Calculated 111 mg/dL (< 100); Osmolality,Calculated 284 (280-300); Potassium 3.5 mEq/L (3.5-5.1); Sodium 136 mEq/L (136-145); Triglycerides 347 mg/dL (< 150); eGFR For African Americans > 60 (> 60); eGFR For Non-African Americans > 60 (> 60)
[2020-08-08] MEDS ORDERED: Insulin LISPRO 300 UNITS/3 ML VIAL SUBQ SCH ×5 (07:30→21:00)
[2020-08-08] MEDS: Gabapentin 300 MG CAPSULE PO SCH ×3 (07:37→20:23)
[2020-08-08] MEDS ORDERED: *HR* Ticagrelor 90 MG TABLET PO SCH (09:00)
[2020-08-08] MEDS ORDERED: Aspirin 81 MG TAB.CHEW PO SCH (09:00)
[2020-08-08] MEDS ORDERED: lisinopriL 5 MG TABLET PO SCH (09:00)
[2020-08-08] MEDS ORDERED: rOPINIRole 0.25 MG TABLET PO STA (10:40)
[2020-08-08] MEDS ORDERED: rOPINIRole 0.25 MG TABLET PO SCH ×2 (15:00→21:00)
[2020-08-08] MEDS: *HR* Heparin 5,000 UNIT/ML VIAL SQ SCH (17:10)
[2020-08-08] MEDS: Insulin LISPRO 300 UNITS/3 ML VIAL SUBQ SCH (17:11)
[2020-08-08] MEDS: carvediloL 6.25 MG TABLET PO SCH (17:11)
[2020-08-08] MEDS ORDERED: *HR* Heparin 5,000 UNIT/ML VIAL SQ SCH (18:00)
[2020-08-08] MEDS: *HR* Ticagrelor 90 MG TABLET PO SCH (20:24)
[2020-08-08] MEDS: rOPINIRole 0.25 MG TABLET PO SCH (21:09)
[2020-08-09] MEDS: *HR* Heparin 5,000 UNIT/ML VIAL SQ SCH (04:54)
[2020-08-09 06:15] LABS: Basophils # 0.1 K/mcL (0.0-0.2); Basophils % 0.7 %; Eosinophils # 0.3 K/mcL (0.0-0.6); Eosinophils % 1.9 %; Hematocrit 36.7 % (35.3-44.9); Hemoglobin 11.5 g/dL (11.5-15.4); Immature Granulocytes % 0.6 % (0-4); Lymphocytes # 2.1 K/mcL (0.6-4.6); Lymphocytes % 15.4 %; Mean Corpuscular HGB Conc 31.3 g/dL (31.6-35.5); Mean Corpuscular Hemoglobin 27.7 pg (28.0-33.3); Mean Corpuscular Volume 88.4 fL (83.0-100.0); Mean Platelet Volume 10.8 fL (9.4-12.4); Monocytes % 7.3 %; Neutrophils # 10.1 K/mcL (1.6-8.9); Platelet Count 247 K/mcL (140-400); Red Blood Count 4.15 M/mcL (3.82-4.97); Red Cell Distribution Width 14.4 % (11.5-14.5); Segmented Neutrophils % 74.1 %; White Blood Count 13.6 K/mcL (4.3-11.1)
[2020-08-09 06:36] LABS: BUN/Creatinine Ratio 23 (6-26); Blood Urea Nitrogen 16 mg/dL (8-23); Calcium 8.6 mg/dL (8.6-10.3); Carbon Dioxide 24 mEq/L (23-29); Chloride 105 mEq/L (98-107); Glucose 181 mg/dL (70-105); Osmolality,Calculated 286 (280-300); Potassium 4.1 mEq/L (3.5-5.1); Sodium 135 mEq/L (136-145); eGFR For African Americans > 60 (> 60); eGFR For Non-African Americans > 60 (> 60)
[2020-08-09] MEDS: carvediloL 6.25 MG TABLET PO SCH (07:45)
[2020-08-09] MEDS: Gabapentin 300 MG CAPSULE PO SCH (07:45)
[2020-08-09] MEDS: *HR* Ticagrelor 90 MG TABLET PO SCH (07:45)
[2020-08-09] MEDS: Insulin LISPRO 300 UNITS/3 ML VIAL SUBQ SCH ×2 (07:47→12:16)
[2020-08-09] MEDS: rOPINIRole 0.25 MG TABLET PO SCH (08:52)
[2020-08-09] MEDS ORDERED: lisinopriL 5 MG TABLET PO SCH (09:00)
[2020-08-09] MEDS ORDERED: Aspirin 81 MG TAB.CHEW PO SCH (09:00)
[2020-08-09 11:34] VITALS: BP 127/85
[2020-08-09] MEDS ORDERED: Nitroglycerin 0.4 MG TAB.SUBL SL PRN (14:16)
[2020-08-11] MEDS ORDERED: Ergocalciferol (VIT D2) 50,000 UNIT (1.25MG) CAP PO SCH (09:00)
== END 2020-08-09 15:54 | disposition home or self-care (01) | DRG 247 ==
LOC: ICNU 19:42 → EMEROOARM 19:42 → ICNU 22:30 → 2NNU 08-09 11:03
PROVIDERS: ADMIT Internal Medicine; ATTEND Internal Medicine Clinical Cardiac Electrophysiology

== ENCOUNTER 2020-09-10 15:53 | Observation (INO) ==
[2020-09-10 16:33] LABS: Basophils # 0.1 K/mcL (0.0-0.2); Basophils % 0.4 %; Eosinophils # 0.2 K/mcL (0.0-0.6); Eosinophils % 1.7 %; Hemoglobin 10.9 g/dL (11.5-15.4); Immature Granulocytes % 0.5 % (0-4); Lymphocytes # 2.1 K/mcL (0.6-4.6); Lymphocytes % 16.7 %; Mean Corpuscular HGB Conc 31.1 g/dL (31.6-35.5); Mean Corpuscular Hemoglobin 27.5 pg (28.0-33.3); Mean Corpuscular Volume 88.2 fL (83.0-100.0); Mean Platelet Volume 10.2 fL (9.4-12.4); Monocytes # 0.8 K/mcL (0.0-1.3); Neutrophils # 9.5 K/mcL (1.6-8.9); Platelet Count 310 K/mcL (140-400); Red Blood Count 3.97 M/mcL (3.82-4.97); Red Cell Distribution Width 14.3 % (11.5-14.5); Segmented Neutrophils % 74.7 %; White Blood Count 12.7 K/mcL (4.3-11.1)
[2020-09-10 16:46] LABS: INR 1.1; Prothrombin Time 12.8 Seconds (9.4-12.1)
[2020-09-10 16:49] LABS: Activated Partial Thrombo Time 30.7 Seconds (26.0-36.0)
[2020-09-10 17:02] LABS: Alanine Aminotransferase 10 Units/L (7-52); Albumin 4.1 g/dL (3.5-5.7); Albumin/Globulin Ratio 1.3 (1.1-2.2); Alkaline Phosphatase 74 Units/L (34-104); Aspartate Amino Transferase 10 Units/L (13-39); BUN/Creatinine Ratio 22 (6-26); Bilirubin,Direct 0.1 mg/dL (0.0-0.2); Bilirubin,Indirect 0.4 mg/dL (0.0-1.0); Bilirubin,Total 0.5 mg/dL (0.3-1.0); Blood Urea Nitrogen 19 mg/dL (8-23); Calcium 9.5 mg/dL (8.6-10.3); Carbon Dioxide 27 mEq/L (23-29); Chloride 103 mEq/L (98-107); Globulin 3.1 g/dL (2.4-3.5); Glucose 221 mg/dL (70-105); Lipase 21 Units/L (11-82); Osmolality,Calculated 293 (280-300); Potassium 4.1 mEq/L (3.5-5.1); Sodium 137 mEq/L (136-145); Total Protein 7.2 g/dL (6.4-8.9); Troponin I < 0.03 ng/mL (< 0.04); eGFR For African Americans > 60 (> 60); eGFR For Non-African Americans > 60 (> 60)
[2020-09-10] MEDS ORDERED: Pantoprazole 40 MG VIAL IVP ONE (17:40)
[2020-09-10] MEDS ORDERED: Aspirin 81 MG TAB.CHEW PO SCH (17:45)
[2020-09-10] MEDS ORDERED: Nitroglycerin 0.4 MG TAB.SUBL SL PRN (17:59)
[2020-09-10] MEDS ORDERED: Morphine Sulfate 2 MG/ML SYRINGE IVP PRN (17:59)
[2020-09-10] MEDS ORDERED: Ondansetron 4 MG/2 ML VIAL IVP PRN (17:59)
[2020-09-10] MEDS ORDERED: Aspirin 81 MG TAB.CHEW PO ONE (18:03)
[2020-09-10] MEDS ORDERED: *HR* Dextrose 50 % in Water (Vial) 50 ML VIAL IVP PRN (18:12)
[2020-09-10] MEDS ORDERED: Dextrose Gel 15 GM/37.5 ML TUBE PO PRN ×2 (18:12)
[2020-09-10] MEDS ORDERED: D5% in Water 1,000 ML IVC PRN (18:12)
[2020-09-10 18:53] LABS: Bilirubin,Urine Negative (Negative); Blood,Urine Negative (Negative); Clarity,Urine Clear (Clear); Color,Urine Colorless (Yellow); Glucose,Urine (UA) Normal (Normal); Ketones,Urine Negative (Negative); Leukocyte Esterase,Urine Negative (Negative); Nitrite,Urine Negative (Negative); Protein,Urine Trace mg/dL (Neg-Trace); Specific Gravity,Urine 1.009 (1.010-1.025); Urobilinogen,Urine Normal (Normal)
[2020-09-10] MEDS: *HR* Ticagrelor 90 MG TABLET PO SCH (20:14)
[2020-09-10] MEDS: Gabapentin 300 MG CAPSULE PO SCH (20:14)
[2020-09-10] MEDS ORDERED: Insulin LISPRO 300 UNITS/3 ML VIAL SUBQ SCH (21:00)
[2020-09-10] MEDS ORDERED: rOPINIRole 0.25 MG TABLET PO SCH (21:00)
[2020-09-11 01:21] LABS: Basophils # 0.1 K/mcL (0.0-0.2); Basophils % 0.5 %; Eosinophils # 0.4 K/mcL (0.0-0.6); Eosinophils % 2.9 %; Hematocrit 33.4 % (35.3-44.9); Hemoglobin 10.4 g/dL (11.5-15.4); Immature Granulocytes % 0.5 % (0-4); Lymphocytes # 2.7 K/mcL (0.6-4.6); Lymphocytes % 20.4 %; Mean Corpuscular HGB Conc 31.1 g/dL (31.6-35.5); Mean Corpuscular Hemoglobin 27.7 pg (28.0-33.3); Mean Corpuscular Volume 88.8 fL (83.0-100.0); Mean Platelet Volume 10.2 fL (9.4-12.4); Monocytes # 0.9 K/mcL (0.0-1.3); Monocytes % 7.1 %; Platelet Count 296 K/mcL (140-400); Red Blood Count 3.76 M/mcL (3.82-4.97); Red Cell Distribution Width 14.5 % (11.5-14.5); Segmented Neutrophils % 68.6 %; White Blood Count 13.1 K/mcL (4.3-11.1)
[2020-09-11 01:49] LABS: Alanine Aminotransferase 8 Units/L (7-52); Albumin 3.6 g/dL (3.5-5.7); Albumin/Globulin Ratio 1.2 (1.1-2.2); Alkaline Phosphatase 65 Units/L (34-104); Aspartate Amino Transferase 10 Units/L (13-39); BUN/Creatinine Ratio 22 (6-26); Bilirubin,Total 0.4 mg/dL (0.3-1.0); Blood Urea Nitrogen 19 mg/dL (8-23); Calcium 8.9 mg/dL (8.6-10.3); Carbon Dioxide 23 mEq/L (23-29); Chloride 107 mEq/L (98-107); Globulin 2.9 g/dL (2.4-3.5); Glucose 135 mg/dL (70-105); Osmolality,Calculated 292 (280-300); Potassium 3.7 mEq/L (3.5-5.1); Sodium 139 mEq/L (136-145); Total Protein 6.5 g/dL (6.4-8.9); Troponin I < 0.03 ng/mL (< 0.04); eGFR For African Americans > 60 (> 60); eGFR For Non-African Americans > 60 (> 60)
[2020-09-11 06:27] VITALS: BP 152/73
[2020-09-11] MEDS: Gabapentin 300 MG CAPSULE PO SCH ×2 (08:00→14:47)
[2020-09-11] MEDS: *HR* Ticagrelor 90 MG TABLET PO SCH (08:00)
[2020-09-11] MEDS ORDERED: carvediloL 6.25 MG TABLET PO SCH (08:00)
[2020-09-11] MEDS ORDERED: Aspirin 81 MG TAB.CHEW PO SCH (09:00)
[2020-09-11] MEDS ORDERED: lisinopriL 5 MG TABLET PO SCH (09:00)
[2020-09-11] MEDS ORDERED: Regadenoson 0.4 MG/5 ML SYRINGE IVP ONE (10:22)
[2020-09-11] MEDS: Insulin LISPRO 300 UNITS/3 ML VIAL SUBQ SCH ×2 (13:23→14:48)
[2020-09-11] MEDS ORDERED: Isosorbide MONOnitrate (24 HR) 30 MG TAB.ER.24H PO SCH (13:30)
== END 2020-09-11 15:07 | disposition home or self-care (01) ==
LOC: 3BNU 15:53 → EMEROOARM 15:53 → SUATTDRO 18:10 → 3BNU 18:58
PROVIDERS: ADMIT General Practice; ATTEND Internal Medicine

== ENCOUNTER 2021-10-13 15:48 | Observation (INO) ==
[2021-10-13 18:59] LABS: Basophils # 0.1 K/mcL (0.0-0.2); Basophils % 0.6 %; Eosinophils # 0.1 K/mcL (0.0-0.6); Eosinophils % 1.1 %; Hematocrit 34.8 % (35.3-44.9); Immature Granulocytes % 0.3 % (0-4); Lymphocytes % 15.9 %; Mean Corpuscular HGB Conc 31.6 g/dL (31.6-35.5); Mean Corpuscular Hemoglobin 27.6 pg (28.0-33.3); Mean Corpuscular Volume 87.4 fL (83.0-100.0); Mean Platelet Volume 10.6 fL (9.4-12.4); Monocytes # 0.8 K/mcL (0.0-1.3); Monocytes % 6.2 %; Neutrophils # 9.5 K/mcL (1.6-8.9); Platelet Count 266 K/mcL (140-400); Red Blood Count 3.98 M/mcL (3.82-4.97); Segmented Neutrophils % 75.9 %; White Blood Count 12.5 K/mcL (4.3-11.1)
[2021-10-13 19:16] LABS: BUN/Creatinine Ratio 25 (6-26); Blood Urea Nitrogen 24 mg/dL (8-23); Calcium 9.6 mg/dL (8.6-10.3); Carbon Dioxide 27 mEq/L (23-29); Chloride 106 mEq/L (98-107); Glucose 177 mg/dL (70-105); Osmolality,Calculated 298 (280-300); Potassium 4.5 mEq/L (3.5-5.1); Sodium 140 mEq/L (136-145); Troponin I < 0.03 ng/mL (< 0.04); eGFR For African Americans > 60 (> 60); eGFR For Non-African Americans 59 (> 60)
[2021-10-13] MEDS ORDERED: Naloxone 0.4 MG/ML INJ IVP PRN (23:42)
[2021-10-13] MEDS ORDERED: Ondansetron 4 MG/2 ML VIAL IVP PRN (23:42)
[2021-10-14] MEDS ORDERED: Dextrose 4 GM Chewable Tablets PO PRN ×2 (02:14)
[2021-10-14] MEDS ORDERED: *HR* Dextrose 50 % in Water (Syg) 50 ML SYRINGE IVP PRN (02:14)
[2021-10-14] MEDS ORDERED: D5% in Water 1,000 ML IVC PRN (02:14)
[2021-10-14] MEDS: Melatonin 3 MG TABLET PO PRN (02:43)
[2021-10-14] MEDS: Acetaminophen 325 MG TABLET PO PRN ×2 (02:44→19:26)
[2021-10-14] MEDS: Gabapentin 300 MG CAPSULE PO SCH ×4 (02:45→19:26)
[2021-10-14] MEDS: rOPINIRole 1 MG TABLET PO SCH ×2 (03:30→19:26)
[2021-10-14] MEDS: *HR* Heparin 5,000 UNIT/ML VIAL SQ SCH ×2 (05:56→16:23)
[2021-10-14] MEDS: Insulin LISPRO 300 UNITS/3 ML VIAL SUBQ SCH ×4 (05:59→19:25)
[2021-10-14] MEDS ORDERED: Regadenoson 0.4 MG/5 ML SYRINGE IVP ONE (06:48)
[2021-10-14 07:44] LABS: Basophils # 0.1 K/mcL (0.0-0.2); Basophils % 0.6 %; Eosinophils # 0.2 K/mcL (0.0-0.6); Eosinophils % 1.3 %; Hematocrit 31.5 % (35.3-44.9); Hemoglobin 9.9 g/dL (11.5-15.4); Immature Granulocytes % 0.5 % (0-4); Lymphocytes # 1.8 K/mcL (0.6-4.6); Lymphocytes % 15.7 %; Mean Corpuscular HGB Conc 31.4 g/dL (31.6-35.5); Mean Corpuscular Hemoglobin 27.7 pg (28.0-33.3); Mean Corpuscular Volume 88.2 fL (83.0-100.0); Mean Platelet Volume 10.9 fL (9.4-12.4); Monocytes # 0.8 K/mcL (0.0-1.3); Monocytes % 6.6 %; Neutrophils # 8.8 K/mcL (1.6-8.9); Platelet Count 229 K/mcL (140-400); Red Blood Count 3.57 M/mcL (3.82-4.97); Segmented Neutrophils % 75.3 %; White Blood Count 11.7 K/mcL (4.3-11.1)
[2021-10-14 08:10] LABS: Alanine Aminotransferase 8 Units/L (7-52); Albumin 3.6 g/dL (3.5-5.7); Albumin/Globulin Ratio 1.3 (1.1-2.2); Alkaline Phosphatase 61 Units/L (34-104); Aspartate Amino Transferase 9 Units/L (13-39); BUN/Creatinine Ratio 22 (6-26); Bilirubin,Total 0.5 mg/dL (0.3-1.0); Blood Urea Nitrogen 22 mg/dL (8-23); Calcium 8.8 mg/dL (8.6-10.3); Carbon Dioxide 25 mEq/L (23-29); Chloride 107 mEq/L (98-107); Globulin 2.8 g/dL (2.4-3.5); Glucose 120 mg/dL (70-105); Magnesium 1.9 mg/dL (1.6-2.6); Osmolality,Calculated 293 (280-300); Phosphorous 3.5 mg/dL (2.7-4.5); Potassium 4.2 mEq/L (3.5-5.1); Sodium 139 mEq/L (136-145); Total Protein 6.4 g/dL (6.4-8.9); Troponin I < 0.03 ng/mL (< 0.04); eGFR For African Americans > 60 (> 60); eGFR For Non-African Americans 57 (> 60)
[2021-10-14] MEDS ORDERED: *HR* HYDROmorphone (PF) 1 MG/ML SYRINGE IVP ONE (08:11)
[2021-10-14] MEDS ORDERED: Aspirin 81 MG TAB.CHEW PO SCH (09:00)
[2021-10-14] MEDS ORDERED: Isovue-370 500 ML BOTTLE IVP ONE (16:38)
[2021-10-14] MEDS ORDERED: Perflutren Lipid Microsphere 1.3 ML in 0.9 % Sodium Chloride 8.7 ML IVP PRN (16:48)
[2021-10-15] MEDS ORDERED: Acetaminophen IV 1,000 MG/100 ML BAG IVPB ONE (02:57)
[2021-10-15] MEDS ORDERED: Morphine Sulfate 2 MG/ML SYRINGE IVP ONE ×2 (05:17→08:36)
[2021-10-15] MEDS: *HR* Heparin 5,000 UNIT/ML VIAL SQ SCH ×2 (05:17→17:10)
[2021-10-15] MEDS ORDERED: Regadenoson 0.4 MG/5 ML SYRINGE IVP ONE (06:00)
[2021-10-15 06:04] LABS: Basophils # 0.1 K/mcL (0.0-0.2); Basophils % 0.6 %; Eosinophils # 0.2 K/mcL (0.0-0.6); Eosinophils % 2.4 %; Hematocrit 31.2 % (35.3-44.9); Hemoglobin 9.9 g/dL (11.5-15.4); Immature Granulocytes % 0.6 % (0-4); Lymphocytes # 1.8 K/mcL (0.6-4.6); Lymphocytes % 19.5 %; Mean Corpuscular HGB Conc 31.7 g/dL (31.6-35.5); Mean Corpuscular Hemoglobin 27.7 pg (28.0-33.3); Mean Corpuscular Volume 87.2 fL (83.0-100.0); Mean Platelet Volume 10.7 fL (9.4-12.4); Monocytes # 0.6 K/mcL (0.0-1.3); Neutrophils # 6.4 K/mcL (1.6-8.9); Platelet Count 236 K/mcL (140-400); Red Blood Count 3.58 M/mcL (3.82-4.97); Red Cell Distribution Width 13.9 % (11.5-14.5); Segmented Neutrophils % 69.9 %; White Blood Count 9.1 K/mcL (4.3-11.1)
[2021-10-15 06:14] LABS: Estimated Average Glucose 235 mg/dl; Hemoglobin A1C 9.8 %
[2021-10-15 06:32] LABS: Alanine Aminotransferase 8 Units/L (7-52); Albumin 3.5 g/dL (3.5-5.7); Albumin/Globulin Ratio 1.3 (1.1-2.2); Alkaline Phosphatase 61 Units/L (34-104); Aspartate Amino Transferase 9 Units/L (13-39); BUN/Creatinine Ratio 18 (6-26); Bilirubin,Total 0.4 mg/dL (0.3-1.0); Blood Urea Nitrogen 18 mg/dL (8-23); Calcium 8.8 mg/dL (8.6-10.3); Carbon Dioxide 28 mEq/L (23-29); Chloride 105 mEq/L (98-107); Globulin 2.6 g/dL (2.4-3.5); Glucose 122 mg/dL (70-105); Osmolality,Calculated 291 (280-300); Potassium 4.1 mEq/L (3.5-5.1); Sodium 139 mEq/L (136-145); Total Protein 6.1 g/dL (6.4-8.9); Troponin I < 0.03 ng/mL (< 0.04); eGFR For African Americans > 60 (> 60); eGFR For Non-African Americans 57 (> 60)
[2021-10-15] MEDS: Insulin LISPRO 300 UNITS/3 ML VIAL SUBQ SCH ×4 (07:44→20:45)
[2021-10-15] MEDS ORDERED: lisinopriL 5 MG TABLET PO SCH (09:00)
[2021-10-15] MEDS: Gabapentin 300 MG CAPSULE PO SCH ×3 (11:57→20:49)
[2021-10-15] MEDS: Aspirin 81 MG TAB.CHEW PO SCH (11:57)
[2021-10-15] MEDS: Isosorbide MONOnitrate (24 HR) 30 MG TAB.ER.24H PO SCH (11:57)
[2021-10-15] MEDS: *HR* HYDROcodone/Acet 5/325 mg TABLET PO PRN ×2 (15:37→21:49)
[2021-10-15] MEDS: rOPINIRole 1 MG TABLET PO SCH (20:48)
[2021-10-15] MEDS: Melatonin 3 MG TABLET PO PRN (21:49)
[2021-10-15 22:48] LABS: Bilirubin,Urine Negative (Negative); Blood,Urine Negative (Negative); Clarity,Urine Clear (Clear); Color,Urine Yellow (Yellow); Glucose,Urine (UA) 30 mg/dL (Normal); Ketones,Urine Negative (Negative); Leukocyte Esterase,Urine Small (Negative); Mucus,Urine Few per lpf (None-Few); Nitrite,Urine Negative (Negative); PH,Urine 5.5 pH Units (5.0-8.0); Protein,Urine 30 mg/dL (Neg-Trace); RBC,Urine 0-3 per hpf (0-3); Specific Gravity,Urine > 1.030 (1.010-1.025); Squamous Epithelial Cell,Urine Moderate per hpf (None-Few); Urobilinogen,Urine Normal (Normal)
[2021-10-16 03:30] VITALS: O2SAT 98
[2021-10-16] MEDS: *HR* Heparin 5,000 UNIT/ML VIAL SQ SCH (05:18)
[2021-10-16 07:43] VITALS: BP 109/65; PULSE 82; TEMP 97.7
[2021-10-16] MEDS: Insulin LISPRO 300 UNITS/3 ML VIAL SUBQ SCH (08:13)
[2021-10-16] MEDS: Aspirin 81 MG TAB.CHEW PO SCH (08:43)
[2021-10-16] MEDS: Isosorbide MONOnitrate (24 HR) 30 MG TAB.ER.24H PO SCH (08:43)
[2021-10-16] MEDS: Gabapentin 300 MG CAPSULE PO SCH (08:43)
== END 2021-10-16 13:14 | disposition home or self-care (01) ==
LOC: EMEROOARM 15:48 → 3BNU 15:48 → SUATTDRO 23:10 → 3BNU 23:39
PROVIDERS: ADMIT Family Medicine; ATTEND Nurse Practitioner